=== PATIENT | male | born 1990 | race American Indian/Alaskan Native ===

== ENCOUNTER 2016-10-01 08:43 | Emergency (ER) | payer SELFPAY ==
--- NOTE | 2016-10-01 13:14 | Emergency Department Report ---
ED Laceration HPI - HPI Chief Complaint: Animal Bite Stated Complaint: DOG BITE/LIP Occurred When: Today Location: Neck Severity: mild Laceration Symptoms: Yes Pain, No Foreign Body Sensation, No Numbness, No Weakness Other History: 26-year-old -Colombian male comes in for bite by dog this a.m. about 8 or 9:00. Patient has a small laceration noted to the upper lip. He reports that it bled a lot but now is controlled. He rates his pain a 3 out of 10 he noted the dog but not sure if the dog is up-to-date on his shots this dog with a puppy. ED Review of Systems ROS: Stated complaint: DOG BITE/LIP Other details as noted in HPI Constitutional: denies: chills, fever Eyes: denies: eye pain, eye discharge, vision change Skin: other (1 cm lack on the right upper lip over the vermilion line) Neurological: denies: headache, weakness, paresthesias Psychiatric: denies: anxiety, depression Hematological/Lymphatic: denies: easy bleeding, easy bruising ED Past Medical Hx - Past Medical History Previous Medical History?: No - Surgical History Past Surgical History?: Yes Additional Surgical History: growth plate to LLE - Social History Smoking Status: Current Every Day Smoker - Medications Home Medications: Home Medications Medication Instructions Recorded Confirmed Last Taken Type Amoxicillin/K Clav Tab [Augmentin 1 tab PO Q12HR #14 tab 10/01/16 Unknown Rx 875 mg] Ibuprofen [Motrin 800 MG tab] 800 mg PO Q8HR #30 tablet 10/01/16 Unknown Rx Laceration Physical Exam - Exam General: Vital signs noted. No distress. Alert and acting appropriately. Wound Length (cm): 1 Laceration Location: Other Laceration Exam: Yes Normal Distal CMS, No Foreign Body (right upper lip), No Exposed Tendon, Vessel, or Nerve, No Tendon Injury ED Course Vital Signs 10/01/16 08:51 Temperature 98.4 F Pulse Rate 101 H Blood Pressure 131/90 O2 Sat by Pulse 100 Oximetry - Laceration /Wound Repair Right Upper Face Wound Length (cm): 1 Wound's Depth, Shape: superficial Wound Explored: clean Betadine Prep?: Yes Wound Repaired With: sutures Suture Size/Type: 4:0 Number of Sutures: 1 Deep Layer Suture Size/Type: gut ED Medical Decision Making - Medical Decision Making He been evaluated that this provider fast track discussed with patient that we will be able to put 1 suture in for cosmetic reasons is very important for him to take the antibiotics and follow up with the primary care provider. I discussed with Dr. Carmona he agreed to put back in place 1 stitch. Patient needs close follow-up. Discussed the patient he could put vitamin E on the cut as well as he would need to use a sun protective so would not cause hyperpigmentation of the lip. Patient verbalized understanding very appreciative. Critical care attestation.: If time is entered above; I have spent that time in minutes in the direct care of this critically ill patient, excluding procedure time. ED Disposition Clinical Impression: Bite by animal Disposition: DISCHARGED TO HOME OR SELFCARE Is pt being admited?: No Condition: Stable Additional Instructions: Patient needs close follow-up. Discussed the patient he could put vitamin E on the cut as well as he would need to use a sun protective so would not cause hyperpigmentation of the lip. Patient verbalized understanding very appreciative. Prescriptions: Amoxicillin/K Clav Tab [Augmentin 875 mg] 1 tab PO Q12HR #14 tab Ibuprofen [Motrin 800 MG tab] 800 mg PO Q8HR #30 tablet Referrals: PRIMARY CARE, [Primary Care Provider] - 3-5 Days Forms: Work/School Release Form(ED)
[2016-10-01] MEDS ORDERED: MOTRIN PO ONE (13:16)
[2016-10-01 13:44] VITALS: BP 134/92
== END 2016-10-01 13:42 | disposition home or self-care (01) ==
LOC: ED 08:43
DX: S01.511A Laceration without foreign body of lip, initial encounter (principal); F17.200 Nicotine dependence, unspecified, uncomplicated; W54.0XXA Bitten by dog, initial encounter; Y93.9 Activity, unspecified; Y92.9 Unspecified place or not applicable; Y99.9 Unspecified external cause status
CPT/HCPCS: 99282

== ENCOUNTER 2017-07-04 22:57 | Emergency (ER) | payer OTHER ==
[2017-07-04 23:39] LABS: Basophils % (Auto) 0.6 % (0.0-1.8); Eosinophils # (Auto) 0.1 K/mm3 (0.0-0.4); Eosinophils % (Auto) 0.9 % (0.0-4.3); Hematocrit 41.6 % (35.5-45.6); Hemoglobin 13.8 gm/dl (11.8-15.2); Lymphocytes # (Auto) 1.5 K/mm3 (1.2-5.4); Lymphocytes % (Auto) 22.6 % (13.4-35.0); Mean Corpuscular HGB Conc 33 % (32-34); Mean Corpuscular Hemoglobin 29 pg (28-32); Mean Corpuscular Volume 89 fl (84-94); Monocytes # (Auto) 0.7 K/mm3 (0.0-0.8); Platelet Count 265 K/mm3 (140-440); Red Blood Count 4.69 M/mm3 (3.65-5.03); Red Cell Distribution Width 14.5 % (13.2-15.2)
[2017-07-05 00:02] LABS: BUN/Creatinine Ratio 10; Blood Urea Nitrogen 9 mg/dL (9-20); Hemolysis Index 5
[2017-07-05 00:49] LABS: Amphetamine Screen,Urine PRESUMPTIVE NEGATIVE; Benzodiazepines Screen,Urine PRESUMPTIVE NEGATIVE; Cocaine Screen,Urine PRESUMPTIVE NEGATIVE; Methadone Screen,Urine PRESUMPTIVE NEGATIVE; Opiate Screen,Urine PRESUMPTIVE NEGATIVE
[2017-07-05 00:50] LABS: Bilirubin,Urine NEG (Negative); Blood,Urine NEG (Negative); Color,Urine Yellow (Yellow); Mucus,Urine FEW /HPF; Nitrite,Urine NEG (Negative); Protein,Urine <15 mg/dL mg/dL (Negative); Urobilinogen,Urine < 2.0 mg/dL (<2.0)
--- NOTE | 2017-07-05 00:52 | Emergency Department Report ---
HPI - General Chief Complaint: Psych Time Seen by Provider: 07/04/17 23:11 - HPI HPI: This is a 27-year-old -[place] male presents to the emergency department by EMS from home with the need for a mental health evaluation. Patient admits that he has not been getting much sleep over the past few days. He says that he will only get a few hours at a time. When asked why he is not getting any sleep he says he will wake up with his family members standing over him and staring at him. The patient also has been allegedly sprinkling holy water around the house. He says that he picked the holy water up at the [employer] store. He denies any suicidal or homicidal ideations or any auditory or visual hallucinations. He denies any medical or psychiatric history. He says that the EMS was called by his grandmother as they were concerned about his behavior , but he does not think that he was acting abnormally. ED Past Medical Hx - Past Medical History Previous Medical History?: No - Surgical History Past Surgical History?: Yes Additional Surgical History: growth plate to LLE - Social History Smoking Status: Never Smoker Substance Use Type: None - Medications Home Medications: Home Medications Medication Instructions Recorded Confirmed Last Taken Type Amoxicillin/K Clav Tab [Augmentin 1 tab PO Q12HR #14 tab 10/01/16 Unknown Rx 875 mg] Ibuprofen [Motrin 800 MG tab] 800 mg PO Q8HR #30 tablet 10/01/16 Unknown Rx ED Review of Systems ROS: Stated complaint: MH Other details as noted in HPI Comment: All other systems reviewed and negative Constitutional: denies: chills, fever Eyes: denies: eye pain, eye discharge, vision change ENT: denies: ear pain, throat pain Respiratory: denies: cough, shortness of breath, wheezing Cardiovascular: denies: chest pain, palpitations Gastrointestinal: denies: abdominal pain, nausea, diarrhea Genitourinary: denies: urgency, dysuria Musculoskeletal: denies: back pain, joint swelling, arthralgia Skin: denies: rash, lesions Neurological: denies: headache, weakness, paresthesias Psychiatric: denies: homicidal thoughts, suicidal thoughts Physical Exam - Physical Exam Vital Signs: Vital Signs 07/04/17 23:11 Temperature 99.5 F Pulse Rate 92 H Respiratory 18 Rate Blood Pressure 142/86 [Left] O2 Sat by Pulse 99 Oximetry Physical Exam: GENERAL: The patient is well-developed well-nourished. HENT: Normocephalic. Atraumatic. Patient has moist mucous membranes. EYES: Extraocular motions are intact. Pupils equal reactive to light bilaterally. NECK: Supple. Trachea is midline. CHEST/LUNGS: Clear to auscultation. There is no respiratory distress noted. HEART/CARDIOVASCULAR: Regular. There is no tachycardia. There is no murmur. ABDOMEN: Abdomen is soft, nontender. Patient has normal bowel sounds. There is no abdominal distention. SKIN: Skin is warm and dry. NEURO: The patient is awake, alert, and oriented. The patient is cooperative. The patient has no focal neurologic deficits. The patient has normal speech. MUSCULOSKELETAL: There is no tenderness or deformity. There is no limitation range of motion. There is no evidence of acute injury. PSYCH: Patient is mostly calm and appropriate but occasionally has some inappropriate laughter. ED Course Vital Signs 07/04/17 23:11 Temperature 99.5 F Pulse Rate 92 H Respiratory 18 Rate Blood Pressure 142/86 [Left] O2 Sat by Pulse 99 Oximetry ED Medical Decision Making - Lab Data Result diagrams: 07/04/17 23:26 07/04/17 23:26 - Medical Decision Making Patient originally was brought in after family was concerned about him and his behavior. At first the patient just show some inappropriate laughter and admits that he has been spreading around some "holy water." He also admits to some insomnia but says that he is getting about 4 hours of sleep a night. The most concerning part that he shared with me was that he said he believes that different family members are standing over him and staring at him waiting for him to wake up. However he was seen by the crisis counselor and showed even more signs of psychosis. He was displaying some pressure speech and/or tangential thoughts. He does not appear to understand why family might be concerned about him. He was able to tell [facility] that he was at [facility] one time in the past that there may have been some previous psychiatric issues and/or diagnosis but he stopped the medications that he was issued. Between these 2 evaluations, the patient does appear to meet criteria to be made a 1013. His labs have been unremarkable and do not show any etiology of the symptoms. Vital signs stable. He appears medically cleared for psychiatric placement. - Differential Diagnosis substance abuse, schizoaffective, schizophrenia, bipolar disorder Critical Care Time: No Critical care attestation.: If time is entered above; I have spent that time in minutes in the direct care of this critically ill patient, excluding procedure time. ED Disposition Clinical Impression: Psychosis Qualifiers: Psychosis type: unspecified psychosis type Qualified Code(s): F29 - Unspecified psychosis not due to a substance or known physiological condition Disposition: DC/TX-65 PSY HOSP/PSY UNIT Is pt being admited?: No Condition: Stable Referrals: NANCY SANTAMARIA MD [Primary Care Provider] - 3-5 Days Time of Disposition: 01:38
[2017-07-05 01:05] LABS: Cannabinoid Screen,Urine PRESUMPTIVE POSITIVE
--- NOTE | 2017-07-05 11:47 | Consultation ---
History of Present Illness - Reason for Consult Consult date: 07/05/17 Reason for consult: Mental Health Evaluation Requesting physician: ALIREZA SALGADO - Chief Complaint Chief complaint: "I can go now" - History of Present Psychiatric Illness This is a 27-year-old -Beninese male presents to the emergency department by EMS from home with the need for a mental health evaluation. Today the patient is irritable, delusional, and hyper verbal during the assessment. He stated that his family stands over him when he wake up. He stated that it must be "unwanted sprits" in their body making them do these types of things to him. He stated, "I can go days without sleeping, what's the big deal." He stated that his family has a "[employer]" they are affiliated with. When the patient was asked to explain this "[employer]" his explanation was not logical. He went on a tangent about being more latter-day than anyone in his family. He stated buying praneeth water and sprinkling it around his house to drive the "Demons" away. During the interview he had to be redirected multiple times to keep him on topic. He denies SI/HI's and AVH's. He denies recreational drug use , but positive for marijuana. He denies alcohol consumption (etoh). Medications and Allergies Allergies Allergy/AdvReac Type Severity Reaction Status Date / Time No Known Allergies Allergy Verified 07/04/17 23:03 Home Medications Medication Instructions Recorded Confirmed Last Taken Type No Known Home Medications [No 07/05/17 07/05/17 Unknown History Reported Home Medications] Past psychiatric history - Past Medical History Past Medical History: No medical history Past Surgical History: No surgical history - past Psychiatric treatment and history psychiatric treatment history: Previous inpatient psy setting at [facility] 2013. Denies a fam psy hx. - Social History Social history: lives with family Mental Status Exam - Vital signs Last Vital Signs Temp 98.8 F 07/05/17 08:05 Pulse 82 07/05/17 08:05 Resp 16 07/05/17 08:06 BP 137/92 07/05/17 08:05 Pulse Ox 100 07/05/17 08:05 - Exam Narrative exam: MSE: Appearance: uncooperative Behavior: regular eye contact Speech: regular rate and tone, hyper verbal Mood: irritated Affect: congruent to mood Thought Process: tangential Thought Content: denies SI/HI's and AVH's, grandiose, delusional, hyper latter-day Motor Activity: ambulatory Cognition: A/O x3 Insight: poor Judgment: poor Results Result Diagrams: 07/04/17 23:26 07/04/17 23:26 Abnormal lab results 07/04/17 07/04/17 Range/Units 23:26 23:26 [place] % (Auto) 11.0 H (0.0-7.3) % Glucose 103 H (75-100) mg/dL All other labs normal. 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 Substance Use DO (marijuana). Today the patient is irritable, delusional, and hyper verbal during the assessment. DDx: R/O Schizophrenia, R/O Delusional DO, R/O Substance Induced Psychosis Recommendation/Plan: Continue 1013 with placement to inpatient psy services. Start Zyprexa 5 mg PO HS for mood/psychosis. Discussed possible metabolic side effects of Zyprexa with patient.
--- NOTE | 2017-07-06 10:47 | Progress Note ---
Subjective - Reason for Consult Consult date: 07/06/17 Reason for consult: Psychiatry Follow-up - Chief Complaint Chief complaint: "Leydi" This is a 27-year-old -Iraqi male presents to the emergency department by EMS from home with the need for a mental health evaluation. Today the patient is calm, but evasive during the assessment. When the patient is asked questions, he would answer some of them. He stated that he got "rest" for the first time in days. He denies SI/HI's and AVH's. He denies any side side effects of his medications. 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 Substance Use DO (marijuana). Today the patient is calm, but evasive during the assessment. DDx: R/O Schizophrenia, R/O Delusional DO, R/O Substance Induced Psychosis Recommendation/Plan: Continue 1013 with placement to inpatient psy services. Continue Zyprexa 5 mg PO HS for mood/psychosis. Discussed possible metabolic side effects of Zyprexa with patient.
--- NOTE | 2017-07-07 18:48 | Progress Note ---
Subjective - Reason for Consult Reason for consult: psych consult - Chief Complaint Chief complaint: This is a 27-year-old -[place] male presents to the emergency department by EMS from home with the need for a mental health evaluation. Patient continues to be relatively calm. His insight regarding his presentation and illness remains a concern given that he states there's no reason why he was brought here. He struggled with a linear account of why he is here. Currently he denies any SI/HI/AH/VH. 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 Substance Use DO ( marijuana). Today the patient is calm, but evasive during the assessment. Recommendation/Plan: Continue 1013 with placement to inpatient psy services. Increase Zyprexa 10 mg PO HS for mood/psychosis.
[2017-07-09 12:20] VITALS: BP 134/84
== END 2017-07-09 14:29 ==
LOC: ED 22:57 → EEVIPCON 22:57 → ED 07-09 14:29
DX: F29 Unspecified psychosis not due to a substance or known physiological condition (principal); Z79.899 Other long term (current) drug therapy
CPT/HCPCS: 36415; 80048; 80307; 81001; 85025; 99285; G0480; 80320

== ENCOUNTER 2019-12-16 15:38 | Emergency (ER) | payer SELFPAY ==
[2019-12-16 20:15] LABS: Basophils % (Auto) 0.5 % (0.0-1.8); Eosinophils % (Auto) 0.6 % (0.0-4.3); Hematocrit 40.4 % (35.5-45.6); Hemoglobin 13.8 gm/dl (11.8-15.2); Lymphocytes # (Auto) 2.1 K/mm3 (1.2-5.4); Lymphocytes % (Auto) 28.8 % (13.4-35.0); Mean Corpuscular HGB Conc 34 % (32-34); Mean Corpuscular Volume 85 fl (84-94); Monocytes # (Auto) 0.7 K/mm3 (0.0-0.8); Platelet Count 249 K/mm3 (140-440); Red Blood Count 4.78 M/mm3 (3.65-5.03); Red Cell Distribution Width 14.2 % (13.2-15.2)
[2019-12-16 20:32] LABS: BUN/Creatinine Ratio 10; Blood Urea Nitrogen 11 mg/dL (9-20); Calcium 8.9 mg/dL (8.4-10.2); Hemolysis Index 21
--- NOTE | 2019-12-16 20:40 | Emergency Department Report ---
ED Psych HPI - General Chief Complaint: Medical Clearance Stated Complaint: 1013 Time Seen by Provider: 12/16/19 19:31 Source: patient Mode of arrival: Ambulatory Limitations: No Limitations - History of Present Illness Initial Comments: This is a 29-year-old male with history of marijuana induced psychosis who presents via [employer] for making threatening statements to his mother. I spoke with mother per phone. She explained that he has been "talking out of his head". His statements have been delusional. He also threatened to harm her. Patient admits that he had an argument with his mother. He denies suicidal homicidal ideation. He denies hallucinations. He explains that he is only here because his mother wanted evaluation. He denies any physical complaints. Mother states that he has been evaluated [facility] and [place] on previous occasion. MD Complaint: other (Erratic behavior threats of harm to her mother) -: week(s) (Several weeks) Associated Psychiatric Symptoms: auditory hallucinations, delusions History of same: Yes Quality: constant Improves With: none Worsens With: none Context: recent drug abuse Associated Symptoms: denies other symptoms - Related Data Previous Rx's Medication Instructions Recorded Last Taken Type Ibuprofen [Motrin] 600 mg PO Q8H PRN #20 tablet 04/07/19 Unknown Rx Sulfamethoxazole/Trimethoprim 1 each PO BID #14 tablet 04/07/19 Unknown Rx [Bactrim DS TAB] Allergies Allergy/AdvReac Type Severity Reaction Status Date / Time No Known Allergies Allergy Verified 07/04/17 23:03 ED Review of Systems ROS: Stated complaint: 1013 Other details as noted in HPI Comment: All other systems reviewed and negative Constitutional: denies: fever, malaise Respiratory: denies: cough Cardiovascular: denies: chest pain Psychiatric: auditory hallucinations, other (Violent threats to mother) ED Past Medical Hx - Past Medical History Previous Medical History?: Yes Hx Psychiatric Treatment: Yes - Surgical History Past Surgical History?: Yes Additional Surgical History: growth plate to LLE - Social History Smoking Status: Unknown if ever smoked Substance Use Type: None - Medications Home Medications: Home Medications Medication Instructions Recorded Confirmed Last Taken Type Ibuprofen [Motrin] 600 mg PO Q8H PRN #20 tablet 04/07/19 Unknown Rx Sulfamethoxazole/Trimethoprim 1 each PO BID #14 tablet 04/07/19 Unknown Rx [Bactrim DS TAB] ED Physical Exam - General Limitations: No Limitations General appearance: alert, in no apparent distress - Head Head exam: Present: atraumatic, normocephalic - Eye Eye exam: Present: normal appearance - ENT ENT exam: Present: mucous membranes moist - Neck Neck exam: Present: normal inspection, full ROM - Respiratory Respiratory exam: Present: normal lung sounds bilaterally. Absent: respiratory distress, wheezes, rales, stridor - Cardiovascular Cardiovascular Exam: Present: regular rate, normal rhythm, normal heart sounds. Absent: systolic murmur, diastolic murmur, rubs, gallop - GI/Abdominal GI/Abdominal exam: Present: soft, normal bowel sounds. Absent: distended, tenderness, guarding, rebound - Rectal Rectal exam: Present: deferred - Extremities Exam Extremities exam: Present: normal inspection - Neurological Exam Neurological exam: Present: alert, oriented X3 - Psychiatric Psychiatric exam: Present: agitated, flat affect - Skin Skin exam: Present: warm, dry, intact, normal color. Absent: rash ED Course Vital Signs 12/16/19 12/16/19 12/17/19 16:40 20:54 03:05 Temperature 98 F 98.7 F 97.9 F Pulse Rate 120 H 94 H 83 Respiratory 16 18 18 Rate Blood Pressure 138/112 Blood Pressure 134/95 118/76 [Right] O2 Sat by Pulse 100 98 100 Oximetry 12/17/19 12/17/19 12/18/19 08:39 19:40 01:45 Temperature 98.6 F 98.1 F 97.6 F Pulse Rate 87 69 83 Respiratory 20 18 18 Rate Blood Pressure Blood Pressure 136/88 131/76 136/79 [Right] O2 Sat by Pulse 100 99 99 Oximetry 12/18/19 12/18/19 12/19/19 07:00 19:57 01:03 Temperature 98.1 F 97.9 F 98.0 F Pulse Rate 76 65 66 Respiratory 18 18 18 Rate Blood Pressure Blood Pressure 130/94 131/71 130/69 [Right] O2 Sat by Pulse 96 100 100 Oximetry 12/19/19 08:50 Temperature 98.1 F Pulse Rate 80 Respiratory 18 Rate Blood Pressure Blood Pressure 146/84 [Right] O2 Sat by Pulse 98 Oximetry ED Medical Decision Making - Lab Data Result diagrams: 12/16/19 20:02 12/16/19 20:02 Laboratory Results - last 24 hr 12/16/19 12/16/19 12/16/19 20:02 20:02 20:02 WBC RBC Hgb Hct MCV MCH MCHC RDW Plt Count Lymph % (Auto) [place] % (Auto) Eos % (Auto) Baso % (Auto) Lymph # Butler # Eos # Baso # Seg Neutrophils % Seg Neutrophils # Sodium 138 Potassium 3.7 Chloride 102.8 Carbon Dioxide 22 Anion Gap 17 BUN 11 Creatinine 1.1 Estimated GFR > 60 BUN/Creatinine Ratio 10 Glucose 116 H Calcium 8.9 Salicylates < 0.3 L Acetaminophen < 5.0 L Plasma/Serum Alcohol 12/16/19 12/16/19 20:02 20:02 WBC 7.2 RBC 4.78 Hgb 13.8 Hct 40.4 MCV 85 MCH 29 MCHC 34 RDW 14.2 Plt Count 249 Lymph % (Auto) 28.8 [place] % (Auto) 10.0 H Eos % (Auto) 0.6 Baso % (Auto) 0.5 Lymph # 2.1 Butler # 0.7 Eos # 0.0 Baso # 0.0 Seg Neutrophils % 60.1 Seg Neutrophils # 4.3 Sodium Potassium Chloride Carbon Dioxide Anion Gap BUN Creatinine Estimated GFR BUN/Creatinine Ratio Glucose Calcium Salicylates Acetaminophen Plasma/Serum Alcohol < 0.01 - Medical Decision Making Mr. Lopez has history of drug-induced psychosis. He has been admitted to previous inpatient facilities on previous occasions for mental health treatment. He has been placed on 1013 involuntary protocol. Patient is unable to care for himself or contract for safety at this time. He has made threatening statements to harm his mother. He is medically clear for psychiatric care. Awaiting treatment recommendations by our psychiatric team. CBC chemistry serum toxicology all unremarkable. According to electronic medical record, patient was transferred to [facility] Critical care attestation.: If time is entered above; I have spent that time in minutes in the direct care of this critically ill patient, excluding procedure time. ED Disposition Clinical Impression: Acute psychosis, Violent behavior Disposition: DC/TX-65 PSY HOSP/PSY UNIT Is pt being admited?: No Does the pt Need Aspirin: No Condition: Stable
[2019-12-17 07:49] LABS: Bilirubin,Urine NEG (Negative); Blood,Urine NEG (Negative); Color,Urine Yellow (Yellow); Mucus,Urine 3+ /HPF; Protein,Urine <15 mg/dL mg/dL (Negative); Urobilinogen,Urine < 2.0 mg/dL (<2.0)
[2019-12-17 07:57] LABS: Amphetamine Screen,Urine PRESUMPTIVE NEGATIVE; Benzodiazepines Screen,Urine PRESUMPTIVE NEGATIVE; Cocaine Screen,Urine PRESUMPTIVE NEGATIVE; Methadone Screen,Urine PRESUMPTIVE NEGATIVE; Opiate Screen,Urine PRESUMPTIVE NEGATIVE
[2019-12-17 08:27] LABS: Cannabinoid Screen,Urine PRESUMPTIVE POSITIVE
--- NOTE | 2019-12-18 11:34 | Consultation ---
History of Present Illness - Reason for Consult Consult date: 12/18/19 Reason for consult: psychosis - History of Present Psychiatric Illness The patient's medical record was reviewed and the patient's progress was discussed with the nursing staff. Judith Lopez is a 29y/o male patient who was brought to the hospital by his mother for talking out of his head and making threats to his mother, according to the chart. The patient states he was brought here "because I got into an argument." He then says, "I'm good. I told them the truth about muslim." He is a/o x 3. He makes fair eye contact. He is cooperative. His speech is nonsensical. He is responding to internal stimuli. When asking the patient about hallucinations, he has a lengthy pause and looks to the side as if thinking, he then replies, "no." When asking the patient why did he take so long to respond, the patient became irritable, stating, "I told you I don't hear voices. What you want me to say." He starts rambling and talking in nonsensical phrases. The patient states, "this is my first time being alive." He then says, "I wasn't trying to argue with them. I kept telling them I smelled monkey a and AIDS." He then says, "like now, it keeps breezing by." He says, "I mean, I'm human. I feel like monkey a and AIDS is in the air." The patient denies illicit drug use, despite being positive for THC. He also denies any alcohol use. He says he smokes "2-3 cigarets a day." The patient denies any past psychiatric history. PAST PSYCHIATRIC HISTORY Diagnoses: Denies Suicide attempts or Self-harm behavior: Denies Prior psychiatric hospitalizations: Denies Substance Abuse history: Denies Previous psychiatric medications tried: Denies Outpatient treatment: Denies SOCIAL HISTORY Marital Status: Single Living Arrangements: With mother Employment Status: Unemployed Access to guns/weapons: Denies Education: High school Graduate History of abuse: Denies Legal History: Denies ROS Constitutional: Negative for weight loss EMT: Negative for stridor Respiratory: Negative for cough or hemoptysis All other systems reviewed and are negative MENTAL STATUS EXAMINATION General Appearance: Dressed appropriately. Behavior: Odd, cooperative Mood: "good" Affect: Restricted Speech: Nonsensical Thought Process: Responding to internal stimuli Suicidal Ideation: Denies Homicidal Ideation: Denies Hallucinations: Auditory Delusions: None elicited Insight and Judgment: Limited Memory/Cognition: Limited Assessment and Plan Major Depressive Disorder, Severe, w/Psychotic Features Polysubsance Abuse Substance Induced Mood Disorder RECOMMENDATIONS MEDICATIONS Seroquel 25mg po BID Trazodone 50mg po qhs Melatonin 5mg po qhs prn insomnia Geodon 20mg IM q6h prn agitation Risks, benefits and alternatives of medications discussed with the patient, questions answered and consent obtained from patient. PSYCHOTHERAPY: Supportive psychotherapy provided MEDICAL: Per primary team DELIRIUM PRECAUTIONS: Please re-orient patient frequently, keep lights on during the day, and minimize benzodiazepines and opiates as these medications could worsen patient's confusion. [employer] SUPERVISOR: Per medical team DISPOSITION: Recommend acute inpatient psychiatric hospitalization at this time. The patient may transfer to an acute psychiatric facility once medically clear. FOLLOW-UP: Will follow until transferred or the patient improves enough for discharge Thank you for the consult. Please contact with any questions and/or concerns. Medications and Allergies Allergies Allergy/AdvReac Type Severity Reaction Status Date / Time No Known Allergies Allergy Verified 07/04/17 23:03 Home Medications Medication Instructions Recorded Confirmed Last Taken Type Ibuprofen [Motrin] 600 mg PO Q8H PRN #20 tablet 04/07/19 Unknown Rx Sulfamethoxazole/Trimethoprim 1 each PO BID #14 tablet 04/07/19 Unknown Rx [Bactrim DS TAB] Mental Status Exam - Vital signs Last Vital Signs Temp 98.1 F 12/18/19 07:00 Pulse 76 12/18/19 07:00 Resp 18 12/18/19 07:00 BP 130/94 12/18/19 07:00 Pulse Ox 96 12/18/19 07:00 Results Result Diagrams: 12/16/19 20:02 12/16/19 20:02 All other labs normal.
[2019-12-18] MEDS ORDERED: ZIPRASIDONE MESYLATE 20 MG VIAL IM PRN (12:30)
[2019-12-18] MEDS: QUEtiapine 25 MG TAB PO SCH ×2 (15:24→22:00)
[2019-12-18] MEDS ORDERED: MELATONIN 5 MG TAB PO PRN (22:00)
[2019-12-18] MEDS ORDERED: traZODone 50 MG TAB PO SCH (22:00)
[2019-12-19 08:52] VITALS: BP 146/84
== END 2019-12-19 10:04 ==
LOC: ED 15:38 → EEVIPCON 15:38 → ED 12-19 10:04
DX: F23 Brief psychotic disorder (principal)
CPT/HCPCS: 36415; 80048; 80307; 80320; 81001; 85025; G0480